=== PATIENT | male | born 1970 | race Caucasian/White ===

== ENCOUNTER 2016-12-23 18:45 | Inpatient (IN) | payer SELFPAY ==
[2016-12-23] MEDS ORDERED: NS 1000 ML 1,000 ML ONE (18:55)
[2016-12-23] MEDS ORDERED: THIAMINE HCL INJ ONE (18:56)
[2016-12-23] MEDS ORDERED: MAGNESIUM SULFATE 50% INJ ONE (18:56)
[2016-12-23] MEDS ORDERED: PHENOBARBITAL SODIUM INJ 65 MG VIAL ONE (18:57)
--- NOTE | 2016-12-23 18:57 | DR.GENAD ---
HPI - PCP Primary Care Physician: Dionicio - Complaint/Symptoms Chief Complaint Doctors Comments: Patient reports that he took two xanax tablets today and has been drinking. He had a history of alcoholism but quit, it is reported that when his dad two weeks he started back drinking. He is not suicidal. He was brought to the ED for evaluation for possible overdose. PMH - PMH Past Medical History: Depression, GERD Past Surgical History: Yes Surgical History: Ortho Surgery - Social History Do you use any recreational Drugs:: No ROS - Review of Systems Eyes: No Symptoms Reported ENTM: No Symptoms Reported Respiratoy: No Symptoms Reported Cardiovascular: No Symptoms Reported Gastrointestinal/Abdominal: No Symptoms Reported Genitourinary: No Symptoms Reported Neurological: No Symptoms Reported Musculoskeletal: No Symptoms Reported Integumentary: No Symptoms Reported Hematologic/Lymphatic: No Symptoms Reported Endocrine: No Symptoms Reported Psychiatric: No Symptoms Reported All Other Systems: Reviewed and Negative PE - Vital Signs Vitals: Pulse Rate 88 Respiratory Rate 20 Blood Pressure [Left Arm] 142/78 Blood Pressure [Right Arm] 130/71 Blood Pressure 122/65 O2 Sat by Pulse Oximetry 100 - General Limitations: No Limitations General Appearance: Alert, In No Apparent Distress, Obtunded, Other (pale) - Head Head Exam: Normal Inspection, Atraumatic - Eyes Eye exam: Normal Appearance, PERRL, EOMI - ENT ENT Exam: Normal Exam External Ear Exam: Normal External Inspection TM/Canal Exam: Bilateral Normal Nose Exam: Normal Nose Exam Mouth Exam: Normal Inspection Throat Exam: Normal Inspection - Neck Neck Exam: Normal Inspection, Full ROM - Chest Chest Inspection: Normal Inspection, Symmetric Chest Wall Rise - Respiratory Respiratory Exam: Normal Lung Sounds Bilat Respiratory Exam: Bilateral Clear to Auscultation - Cardiovascular Cardiovascular Exam: Regular Rate, Normal Rhythm - Abdominal Exam Abdominal Exam: Normal Inspection Abdominal Tenderness: negative: RUQ, RLQ, LUQ, LLQ, Epigastrium, Suprapubic, Diffuse, Mild, Moderate, Severe, Other - Extremities Extremities Exam: Normal Inspection - Back Back Exam: Normal Inspection - Neurologic Neurological Exam: Alert, Oriented X3, CN II-XII Intact, Other (intoxicated) - Psychiatric Psychiatric Exam: Normal Affect. negative: Homicidal Ideation, Suicidal Ideation - Skin Skin Exam: Warm, Dry, Intact Course - Consultation Called: 08:05 (Dr Greenberg recommended admission for further evaluation and treatment) ROR - Labs Reviewed Result Diagrams: 12/23/16 18:58 12/23/16 18:58 Laboratory: WBC 11.4 X10^3/uL (3.6-10.0) H 12/23/16 18:58 RBC 2.26 X10^6/uL (4.7-6.0) L 12/23/16 18:58 Hgb 3.3 g/dL (13.5-18.0) L* 12/23/16 18:58 Hct 12.5 % (42.0-54.0) L* 12/23/16 18:58 MCV 55.3 fL (80.0-100.0) L 12/23/16 18:58 MCH 14.6 pg (27.0-34.0) L 12/23/16 18:58 MCHC 26.5 g/dL (33.0-35.0) L 12/23/16 18:58 RDW 19.9 % (11.6-16.5) H 12/23/16 18:58 Plt Count 214 X10^3/uL (150.0-450.0) 12/23/16 18:58 Plt Count Comment Adequate (ADEQUATE) 12/23/16 18:58 MPV 8.5 fL (7.4-11.0) 12/23/16 18:58 Neut % 75.4 % (42.0-75.0) H 12/23/16 18:58 Lymph % 15.6 % (21.0-51.0) L 12/23/16 18:58 [place] % 5.6 % (0.0-13.0) 12/23/16 18:58 Eos % 2.2 % (0.9-2.9) 12/23/16 18:58 Baso % 1.2 % (0.2-1.0) H 12/23/16 18:58 Neut # 8.6 x10^3/uL (2.2-4.8) H 12/23/16 18:58 Lymph # 1.8 X10^3/uL (1.3-2.9) 12/23/16 18:58 [place] # 0.6 x10^3/uL (0.3-0.8) 12/23/16 18:58 Eos # 0.3 x10^3/uL (0.0-0.2) H 12/23/16 18:58 Baso # 0.1 X10^3/uL (0.0-0.1) 12/23/16 18:58 Absolute Nucleated RBC 1.1 /100WBC 12/23/16 18:58 Total Counted 100 12/23/16 18:58 Neutrophils % (Manual) 86 % (39-76) H 12/23/16 18:58 Lymphocytes % (Manual) 14 % (13-43) 12/23/16 18:58 Plt Morphology Comment Normal (NORMAL) 12/23/16 18:58 RBC Morphology Abnormal (NORMAL) 12/23/16 18:58 Hypochromasia 3+ A 12/23/16 18:58 Microcytosis 3+ A 12/23/16 18:58 Sodium 141 mmol/L (136-145) 12/23/16 18:58 Corrected Sodium 142 mmol/L (136-145) 12/23/16 18:58 Potassium 3.2 mmol/L (3.5-5.1) L 12/23/16 18:58 Chloride 108 mmol/L (98-107) H 12/23/16 18:58 Carbon Dioxide 17.1 mmol/L (21-32) L 12/23/16 18:58 BUN 15 mg/dL (7-18) 12/23/16 18:58 Creatinine 0.99 mg/dL (0.70-1.30) 12/23/16 18:58 Est GFR (MDRD) Af Amer > 60 (>60) 12/23/16 18:58 Est GFR (MDRD) Non-Af > 60 (>60) 12/23/16 18:58 Glucose 123 mg/dL (65-99) H 12/23/16 18:58 Calcium 7.5 mg/dL (8.5-10.1) L 12/23/16 18:58 Corrected Calcium 8.4 mg/dL (8.5-10.1) L 12/23/16 18:58 Total Bilirubin 0.30 mg/dL (0.2-1.0) 12/23/16 18:58 AST 11 Units/L (15-37) L 12/23/16 18:58 ALT 16 Units/L (12-78) 12/23/16 18:58 Alkaline Phosphatase 76 Units/L (46-116) 12/23/16 18:58 Ammonia 18 umol/L (11-32) 12/23/16 20:39 Total Protein 5.8 g/dL (6.4-8.2) L 12/23/16 18:58 Albumin 2.9 g/dL (3.4-5.0) L 12/23/16 18:58 Globulin 2.9 g/dL (2.5-4.5) 12/23/16 18:58 Albumin/Globulin Ratio 1.0 Ratio (1.1-2.1) L 12/23/16 18:58 Specimen Type Catherized urine 12/23/16 19:36 Urine Color Yellow (YELLOW) 12/23/16 19:36 Urine Appearance Clear (CLEAR) 12/23/16 19:36 Urine pH 6.0 (5.0 - 8.0) 12/23/16 19:36 Ur Specific [place] 1.020 (1.000-1.030) 12/23/16 19:36 Urine Protein 1+ (NEGATIVE) 12/23/16 19:36 Urine Glucose (UA) Negative (NEGATIVE) 12/23/16 19:36 Urine Ketones Negative (NEGATIVE) 12/23/16 19:36 Urine Occult Blood 3+ (NEGATIVE) 12/23/16 19:36 Urine Nitrite Negative (NEGATIVE) 12/23/16 19:36 Urine Bilirubin Negative (NEGATIVE) 12/23/16 19:36 Urine Urobilinogen Normal (NORMAL) 12/23/16 19:36 Ur Leukocyte Esterase 1+ (NEGATIVE) 12/23/16 19:36 Urine RBC 12-15 /HPF (NEGATIVE) 12/23/16 19:36 Urine WBC 2-3 /HPF (NEGATIVE) 12/23/16 19:36 Ur Squamous Epith Cells Negative /HPF (NEGATIVE) 12/23/16 19:36 Amorphous Sediment 1+ /HPF (NEGATIVE) 12/23/16 19:36 Urine Bacteria Trace /HPF (NEGATIVE) 12/23/16 19:36 Hyaline Casts Rare /LPF (NEGATIVE) 12/23/16 19:36 Urine Mucus Moderate /HPF (NEGATIVE) 12/23/16 19:36 Ur Culture Indicated? No/not indicated 12/23/16 19:36 Salicylates 3.9 mg/dL (2.8-20) 12/23/16 18:58 Urine Opiates Screen Negative (NEG=<300) 12/23/16 19:36 Urine Methadone Screen Negative (NEG=<300) 12/23/16 19:36 Acetaminophen 1.7 ug/mL (10-30) L 12/23/16 18:58 Ur Barbiturates Screen Negative (NEG=<200) 12/23/16 19:36 Ur Phencyclidine Scrn Negative (NEG=<25) 12/23/16 19:36 Ur Amphetamines Screen Negative (NEG=<1000) 12/23/16 19:36 U Benzodiazepines Scrn Positive (NEG=<200) 12/23/16 19:36 Urine Cocaine Screen Negative (NEG=<300) 12/23/16 19:36 U Marijuana (THC) Screen Positive (NEG=<50) A 12/23/16 19:36 Ethyl Alcohol mg/dL 59 mg/dL (0-19.9) H 12/23/16 18:58 Blood Type O POSITIVE 12/23/16 18:58 Antibody Screen Negative 12/23/16 18:58 Crossmatch See Detail 12/23/16 18:58 - XRAY XRAY Interpreted by: Radiologist (Chest: Cardiomegaly w/o CHF, lungs are clear) - Diagnosis Discharge Problem: Hypokalemia, Metabolic acidosis Anemia Qualifiers: Anemia type: unspecified type Qualified Code(s): D64.9 - Anemia, unspecified - Discharge Plan Condition: Stable - Follow ups/Referrals Follow ups/Referrals: MONICA GREENBERG [Primary Care Provider] - 3 days - Instructions
[2016-12-23] MEDS ORDERED: MVI INJ (ADULT) IV ONE (19:04)
[2016-12-23 19:07] LABS: BASOPHILS # (AUTO) 0.1 X10^3/uL (0.0-0.1); EOSINOPHILS # (AUTO) 0.3 x10^3/uL (0.0-0.2); MONOCYTES # (AUTO) 0.6 x10^3/uL (0.3-0.8); RED CELL DISTRIBUTION WIDTH 19.9 % (11.6-16.5)
[2016-12-23] MEDS: NS 1000 ML 1,000 ML with THIAMINE HCL INJ 100 MG, MAGNESIUM SULFATE 50% INJ 1 GM, MVI I... IV SCH ×5 (19:16)
[2016-12-23 19:18] LABS: ALANINE AMINOTRANSFERASE 16 Units/L (12-78); ALBUMIN 2.9 g/dL (3.4-5.0); ALKALINE PHOSPHATASE 76 Units/L (46-116); ASPARTATE AMINO TRANSFERASE 11 Units/L (15-37); BLOOD ALCOHOL 59 mg/dL (0-19.9); BLOOD UREA NITROGEN 15 mg/dL (7-18); CALCIUM 7.5 mg/dL (8.5-10.1); CARBON DIOXIDE 17.1 mmol/L (21-32); CHLORIDE 108 mmol/L (98-107); COR CA(FOR HYPOALB) 8.4 mg/dL (8.5-10.1); COR NA(FOR HYPERGLY) 142 mmol/L (136-145); CREATININE 0.99 mg/dL (0.70-1.30); GLUCOSE 123 mg/dL (65-99); SODIUM 141 mmol/L (136-145); TOTAL PROTEIN 5.8 g/dL (6.4-8.2); eGFR BLACK RACES > 60 (>60); eGFR NON BLACK RACES > 60 (>60)
[2016-12-23 19:20] LABS: ACETAMINOPHEN 1.7 ug/mL (10-30); SALICYLATE 3.9 mg/dL (2.8-20)
[2016-12-23 19:25] LABS: BASOPHILS % (AUTO) 1.2 % (0.2-1.0); EOSINOPHILS % (AUTO) 2.2 % (0.9-2.9); LYMPHOCYTES # (AUTO) 1.8 X10^3/uL (1.3-2.9); LYMPHOCYTES % (AUTO) 15.6 % (21.0-51.0); MEAN CORPUSCULAR HEMOGLOBIN 14.6 pg (27.0-34.0); MEAN CORPUSCULAR HGB CONC 26.5 g/dL (33.0-35.0); MEAN CORPUSCULAR VOLUME 55.3 fL (80.0-100.0); MEAN PLATELET VOLUME 8.5 fL (7.4-11.0); MONOCYTES % (AUTO) 5.6 % (0.0-13.0); NEUTROPHILS # (AUTO) 8.6 x10^3/uL (2.2-4.8); NEUTROPHILS % (AUTO) 75.4 % (42.0-75.0); PLATELET COUNT 214 X10^3/uL (150.0-450.0); RED BLOOD COUNT 2.26 X10^6/uL (4.7-6.0); WHITE BLOOD COUNT 11.4 X10^3/uL (3.6-10.0)
[2016-12-23 19:27] LABS: HEMOGLOBIN 3.3 g/dL (13.5-18.0)
[2016-12-23 19:28] LABS: HEMATOCRIT 12.5 % (42.0-54.0)
[2016-12-23 19:33] LABS: PLATELET MORPHOLOGY COMMENT NORMAL (NORMAL)
[2016-12-23 19:34] LABS: HYPOCHROMASIA 3+; MICROCYTOSIS 3+
[2016-12-23 20:02] LABS: BILIRUBIN,URINE NEGATIVE (NEGATIVE); BLOOD/HEMOGLOBIN,URINE 3+ (NEGATIVE); GLUCOSE, URINE NEGATIVE (NEGATIVE); KETONES,URINE NEGATIVE (NEGATIVE); LEUKOCYTE ESTERASE ,URINE 1+ (NEGATIVE); NITRITES,URINE NEGATIVE (NEGATIVE); PROTEIN,URINE 1+ (NEGATIVE); UROBILINOGEN,URINE NORMAL (NORMAL)
[2016-12-23 20:10] LABS: AMORPHOUS SEDIMENT,UR 1+ /HPF (NEGATIVE); APPEARANCE,URINE CLEAR (CLEAR); BACTERIA,URINE TRACE /HPF (NEGATIVE); COLOR,URINE YELLOW (YELLOW); HYALINE CASTS, URINE RARE /LPF (NEGATIVE); MUCUS,URINE MODERATE /HPF (NEGATIVE); SQUAMOUS EPITHELIAL CELL,UR NEGATIVE /HPF (NEGATIVE)
[2016-12-23] MEDS ORDERED: NS IV ONE ×2 (20:12)
[2016-12-23] MEDS ORDERED: POTASSIUM CHLORIDE IV ONE ×2 (20:12)
--- NOTE | 2016-12-23 20:14 | RAD ---
HISTORY: Intoxicated. Study: Single-view chest. Comparison: August 05, 2011. Findings: The trachea is midline. The cardiac silhouette is enlarged without evidence of congestive heart fail ure. The lungs are clear without focal consolidation, pleural effusion or pneumothorax. The bony tho rax is grossly unremarkable. IMPRESSION: 1. Cardiomegaly without congestive heart failure. 2. The lungs are clear. Reported By:
[2016-12-23] MEDS ORDERED: NS 250 ML IV 250 ML IV ONE ×2 (20:36→23:01)
[2016-12-23 23:03] VITALS: BMI 30.4
[2016-12-24] MEDS ORDERED: PROTONIX INJ 40 MG VIAL ONE (01:12)
[2016-12-24] MEDS ORDERED: NS 1000 ML 1,000 ML ONE (01:12)
[2016-12-24] MEDS ORDERED: PHENOBARBITAL SODIUM INJ 65 MG VIAL ONE (01:13)
[2016-12-24] MEDS ORDERED: MVI INJ (ADULT) IV ONE (01:13)
[2016-12-24] MEDS ORDERED: MAGNESIUM SULFATE 50% INJ ONE (01:13)
[2016-12-24] MEDS ORDERED: THIAMINE HCL INJ ONE (01:13)
[2016-12-24 02:54] LABS: FREE T4 (FREE THYROXINE) 0.85 ng/dL (0.76-1.46); TSH (3RD GENERATION) 0.922 uIU/mL (0.358-3.74)
[2016-12-24] MEDS: PROTONIX INJ 40 MG VIAL IVP SCH ×3 (03:28→20:51)
[2016-12-24] MEDS: NS 1000 ML 1,000 ML with THIAMINE HCL INJ 100 MG, MAGNESIUM SULFATE 50% INJ 1 GM, MVI I... IV SCH ×10 (03:28→20:37)
[2016-12-24 05:09] LABS: BASOPHILS # (AUTO) 0.2 X10^3/uL (0.0-0.1); BASOPHILS % (AUTO) 1.3 % (0.2-1.0); EOSINOPHILS # (AUTO) 0.2 x10^3/uL (0.0-0.2); EOSINOPHILS % (AUTO) 1.8 % (0.9-2.9); LYMPHOCYTES # (AUTO) 2.6 X10^3/uL (1.3-2.9); LYMPHOCYTES % (AUTO) 21.8 % (21.0-51.0); MEAN CORPUSCULAR HEMOGLOBIN 17.8 pg (27.0-34.0); MEAN CORPUSCULAR HGB CONC 28.9 g/dL (33.0-35.0); MEAN CORPUSCULAR VOLUME 61.6 fL (80.0-100.0); MEAN PLATELET VOLUME 8.8 fL (7.4-11.0); MONOCYTES # (AUTO) 0.5 x10^3/uL (0.3-0.8); MONOCYTES % (AUTO) 4.4 % (0.0-13.0); NEUTROPHILS # (AUTO) 8.4 x10^3/uL (2.2-4.8); NEUTROPHILS % (AUTO) 70.7 % (42.0-75.0); PLATELET COUNT 169 X10^3/uL (150.0-450.0); RED BLOOD COUNT 2.94 X10^6/uL (4.7-6.0); RED CELL DISTRIBUTION WIDTH 30.3 % (11.6-16.5); WHITE BLOOD COUNT 11.8 X10^3/uL (3.6-10.0)
[2016-12-24 05:10] LABS: HEMATOCRIT 18.1 % (42.0-54.0); HEMOGLOBIN 5.2 g/dL (13.5-18.0)
[2016-12-24 05:15] LABS: ALANINE AMINOTRANSFERASE 18 Units/L (12-78); ALBUMIN 3.1 g/dL (3.4-5.0); ALKALINE PHOSPHATASE 92 Units/L (46-116); ASPARTATE AMINO TRANSFERASE 16 Units/L (15-37); BLOOD UREA NITROGEN 16 mg/dL (7-18); CALCIUM 7.4 mg/dL (8.5-10.1); CARBON DIOXIDE 20.7 mmol/L (21-32); CHLORIDE 109 mmol/L (98-107); COR CA(FOR HYPOALB) 8.1 mg/dL (8.5-10.1); COR NA(FOR HYPERGLY) 140 mmol/L (136-145); CREATININE 0.76 mg/dL (0.70-1.30); GLUCOSE 112 mg/dL (65-99); SODIUM 140 mmol/L (136-145); eGFR BLACK RACES > 60 (>60); eGFR NON BLACK RACES > 60 (>60)
[2016-12-24] MEDS ORDERED: NS 250 ML IV 250 ML IV ONE ×2 (05:17→22:19)
[2016-12-24 05:59] LABS: ANISOCYTOSIS 3+; HYPOCHROMASIA 3+; MICROCYTOSIS 3+; PLATELET MORPHOLOGY COMMENT NORMAL (NORMAL)
[2016-12-24] MEDS ORDERED: TYLENOL 325 MG TAB PO PRN (09:31)
[2016-12-24] MEDS ORDERED: BENADRYL INJ 50 MG VIAL IVP ONE (14:43)
[2016-12-24] MEDS ORDERED: NS 100 ML IV 100 ML IV ONE (16:26)
[2016-12-24] MEDS: ULTRAM PO PRN ×2 (17:00→23:49)
--- NOTE | 2016-12-24 18:12 | CT ---
CT OF THE ABDOMEN AND PELVIS WITHOUT AND WITH CONTRAST HISTORY: Abdominal pain. Comparison: None Technique: Multiple axial images of the abdomen and pelvis were obtained from the lung bases to the pubic symphy sis before and following the administration of IV contrast. Dose reduction techniques including Aut omated Exposure Control (AEC) and adjustment of mA and kV were utlized. Findings: The heart is normal in size. There is no pericardial effusion. Trace bilateral pleural effusions with adjacent atelectasis. Large hiatal hernia with a large portion of the stomach residing within the c hest. Abdomen without: No gallstones, renal stones or proximal ureteral stones. Abdomen with: Liver and spleen are normal in size, enhancement characteristics and contour. No focal lesions. The portal vein is patent. No ductal dilitation. gallbladder wall is mildly edematous and th ere is edema within the region of the macarena hepatis and the perihepatic region. The pancreas is unrem arkable. Adrenal glands are normal. Kidneys enhance symmetrically without hydronephrosis. No bowel obstruction or inflammation. Normal appendix. Severe diverticulosis without definite evidenc e of focal inflammation No abnormal appearing mesenteric or retroperitoneal lymph nodes. No free flui d or fluid collections. Pelvis without: No distal ureteral stones or bladder stones. Pelvis with: Bladder is somewhat thick-walled. Prostate not enlarged. Fluid can be seen within the r ight inguinal canal. No aggressive osseous lesions. IMPRESSION: 1. Edematous appearing gallbladder which may represent cholecystitis in the correct clinical setting . Additional signs of inflammation and free fluid can be seen in the region of the macarena hepatis, per ihepatic space, low pelvis and right inguinal canal. Other than previously mentioned gallbladder, no definite source of inflammation can be identified. Reported By:
[2016-12-24] MEDS: ZOFRAN INJ 4 MG VIAL IVP PRN (18:43)
[2016-12-24 22:13] LABS: HEMATOCRIT 22.5 % (42.0-54.0)
[2016-12-24 22:14] LABS: HEMOGLOBIN 6.7 g/dL (13.5-18.0)
[2016-12-25] MEDS ORDERED: NS 250 ML IV 250 ML IV ONE (01:04)
[2016-12-25] MEDS: ZOFRAN INJ 4 MG VIAL IVP PRN (03:50)
[2016-12-25] MEDS: NORCO 5/325 MG TAB PO PRN (05:27)
[2016-12-25] MEDS: PHENERGAN INJ 25 MG IV PRN ×2 (05:27→21:54)
[2016-12-25] MEDS ORDERED: THIAMINE HCL INJ ONE (05:37)
[2016-12-25] MEDS ORDERED: PHENOBARBITAL SODIUM INJ 65 MG VIAL ONE (05:37)
[2016-12-25] MEDS ORDERED: NS 1000 ML 1,000 ML ONE (05:37)
[2016-12-25] MEDS ORDERED: MAGNESIUM SULFATE 50% INJ ONE (05:37)
[2016-12-25] MEDS ORDERED: MVI INJ (ADULT) IV ONE (05:38)
[2016-12-25 05:40] LABS: BASOPHILS # (AUTO) 0.3 X10^3/uL (0.0-0.1); BASOPHILS % (AUTO) 1.9 % (0.2-1.0); EOSINOPHILS # (AUTO) 0.1 x10^3/uL (0.0-0.2); HEMOGLOBIN 8.9 g/dL (13.5-18.0); LYMPHOCYTES # (AUTO) 1.4 X10^3/uL (1.3-2.9); LYMPHOCYTES % (AUTO) 9.8 % (21.0-51.0); MEAN CORPUSCULAR HEMOGLOBIN 20.7 pg (27.0-34.0); MEAN CORPUSCULAR HGB CONC 30.6 g/dL (33.0-35.0); MEAN CORPUSCULAR VOLUME 67.8 fL (80.0-100.0); MEAN PLATELET VOLUME 8.8 fL (7.4-11.0); MONOCYTES # (AUTO) 0.7 x10^3/uL (0.3-0.8); MONOCYTES % (AUTO) 4.8 % (0.0-13.0); NEUTROPHILS # (AUTO) 11.8 x10^3/uL (2.2-4.8); NEUTROPHILS % (AUTO) 82.5 % (42.0-75.0); PLATELET COUNT 117 X10^3/uL (150.0-450.0); RED BLOOD COUNT 4.28 X10^6/uL (4.7-6.0); RED CELL DISTRIBUTION WIDTH 32.2 % (11.6-16.5); WHITE BLOOD COUNT 14.3 X10^3/uL (3.6-10.0)
[2016-12-25] MEDS: NS 1000 ML 1,000 ML with THIAMINE HCL INJ 100 MG, MAGNESIUM SULFATE 50% INJ 1 GM, MVI I... IV SCH ×10 (05:45→19:14)
[2016-12-25 06:03] LABS: ALANINE AMINOTRANSFERASE 20 Units/L (12-78); ALKALINE PHOSPHATASE 98 Units/L (46-116); ASPARTATE AMINO TRANSFERASE 24 Units/L (15-37); BLOOD UREA NITROGEN 4 mg/dL (7-18); CALCIUM 7.6 mg/dL (8.5-10.1); CARBON DIOXIDE 22.4 mmol/L (21-32); CHLORIDE 108 mmol/L (98-107); COR CA(FOR HYPOALB) 8.4 mg/dL (8.5-10.1); CREATININE 0.55 mg/dL (0.70-1.30); GLUCOSE 110 mg/dL (65-99); SODIUM 140 mmol/L (136-145); eGFR BLACK RACES > 60 (>60); eGFR NON BLACK RACES > 60 (>60)
[2016-12-25 06:31] LABS: ANISOCYTOSIS 3+; HYPOCHROMASIA 2+; MICROCYTOSIS 1+; PLATELET MORPHOLOGY COMMENT NORMAL (NORMAL); POIKILOCYTOSIS 1+
[2016-12-25] MEDS: PROTONIX INJ 40 MG VIAL IVP SCH ×2 (08:45→20:53)
[2016-12-25] MEDS: ZOSYN VIAL 3.375 GM 3.375 GM in NS 100 ML IV + SPIKE MINIBAG* 100 ML IV SCH ×3 (08:45→20:59)
[2016-12-25] MEDS ORDERED: DILAUDID INJ IVP PRN (08:54)
[2016-12-25] MEDS: DILAUDID INJ IVP PRN ×4 (09:35→21:54)
--- NOTE | 2016-12-25 12:38 | US ---
Limited abdominal ultrasound Indication: Right upper quadrant pain Comparison: None Technique: Sonographic images of the abdomen were obtained per protocol. Findings: There is no cholelithiasis or gallbladder sludge. There is mild pericholecystic edema, alth ough the wall is not thickened. No biliary dilation is observed; the common duct measures 3 mm in [place] meter. The visualized liver and right kidney were within normal limits. The pancreas was not visualiz ed. Impression: Nonspecific pericholecystic edema without other evidence to suggest cholecystitis. No gallbladder sto jeromy or sludge. Reported By:
[2016-12-25] MEDS ORDERED: PHARMACY CONSULT - DOSE _____ XX SCH (14:00)
[2016-12-25] MEDS ORDERED: DEXFERRUM or INFED 25 MG in NS 100 ML IV 100 ML IV ONE (15:00)
[2016-12-25] MEDS ORDERED: DEXFERRUM or INFED 1,000 MG in NS 500 ML IV 500 ML IV ONE (16:00)
[2016-12-25] MEDS ORDERED: NS 500 ML IV 500 ML IV ONE (20:46)
[2016-12-26] MEDS: DILAUDID INJ IVP PRN ×5 (04:19→20:54)
[2016-12-26] MEDS ORDERED: NS 1000 ML 1,000 ML ONE (04:32)
[2016-12-26] MEDS ORDERED: PHENOBARBITAL SODIUM INJ 65 MG VIAL ONE (04:33)
[2016-12-26] MEDS ORDERED: THIAMINE HCL INJ ONE (04:33)
[2016-12-26] MEDS ORDERED: MAGNESIUM SULFATE 50% INJ ONE (04:33)
[2016-12-26] MEDS ORDERED: MVI INJ (ADULT) IV ONE (04:34)
[2016-12-26 04:44] LABS: ALANINE AMINOTRANSFERASE 18 Units/L (12-78); ALBUMIN 2.8 g/dL (3.4-5.0); ALKALINE PHOSPHATASE 90 Units/L (46-116); BLOOD UREA NITROGEN 5 mg/dL (7-18); CALCIUM 7.6 mg/dL (8.5-10.1); CARBON DIOXIDE 25.5 mmol/L (21-32); CHLORIDE 106 mmol/L (98-107); COR CA(FOR HYPOALB) 8.6 mg/dL (8.5-10.1); CREATININE 0.64 mg/dL (0.70-1.30); GLUCOSE 100 mg/dL (65-99); SODIUM 141 mmol/L (136-145); TOTAL PROTEIN 5.8 g/dL (6.4-8.2); eGFR BLACK RACES > 60 (>60); eGFR NON BLACK RACES > 60 (>60)
[2016-12-26 04:47] LABS: BASOPHILS # (AUTO) 0.1 X10^3/uL (0.0-0.1); EOSINOPHILS # (AUTO) 0.3 x10^3/uL (0.0-0.2); EOSINOPHILS % (AUTO) 2.9 % (0.9-2.9); HEMATOCRIT 30.1 % (42.0-54.0); HEMOGLOBIN 9.4 g/dL (13.5-18.0); LYMPHOCYTES # (AUTO) 1.1 X10^3/uL (1.3-2.9); LYMPHOCYTES % (AUTO) 12.3 % (21.0-51.0); MEAN CORPUSCULAR HEMOGLOBIN 21.5 pg (27.0-34.0); MEAN CORPUSCULAR HGB CONC 31.3 g/dL (33.0-35.0); MEAN CORPUSCULAR VOLUME 68.8 fL (80.0-100.0); MEAN PLATELET VOLUME 8.7 fL (7.4-11.0); MONOCYTES # (AUTO) 0.6 x10^3/uL (0.3-0.8); MONOCYTES % (AUTO) 6.7 % (0.0-13.0); NEUTROPHILS # (AUTO) 7.1 x10^3/uL (2.2-4.8); NEUTROPHILS % (AUTO) 77.1 % (42.0-75.0); PLATELET COUNT 144 X10^3/uL (150.0-450.0); RED BLOOD COUNT 4.37 X10^6/uL (4.7-6.0); RED CELL DISTRIBUTION WIDTH 32.3 % (11.6-16.5); WHITE BLOOD COUNT 9.3 X10^3/uL (3.6-10.0)
[2016-12-26 05:42] LABS: ASPARTATE AMINO TRANSFERASE 16 Units/L (15-37)
[2016-12-26] MEDS: ZOSYN VIAL 3.375 GM 3.375 GM in NS 100 ML IV + SPIKE MINIBAG* 100 ML IV SCH ×3 (05:48→21:12)
[2016-12-26] MEDS: NS 1000 ML 1,000 ML with THIAMINE HCL INJ 100 MG, MAGNESIUM SULFATE 50% INJ 1 GM, MVI I... IV SCH ×10 (05:48→20:53)
[2016-12-26] MEDS ORDERED: POTASSIUM CHLORIDE LIQ 20 MEQ UDC PO PRN (05:50)
[2016-12-26] MEDS ORDERED: K-LYTE EFFERVESCENT PO PRN (05:50)
[2016-12-26] MEDS ORDERED: K-RIDER 10 MEQ/NS 100 ML 10 MEQ/100 ML BAG IV PRN (05:50)
[2016-12-26 06:45] LABS: ANISOCYTOSIS 3+; HYPOCHROMASIA 1+; MICROCYTOSIS 1+; PLATELET MORPHOLOGY COMMENT NORMAL (NORMAL)
[2016-12-26] MEDS: PROTONIX INJ 40 MG VIAL IVP SCH ×2 (10:45→20:54)
--- NOTE | 2016-12-26 11:09 | NM ---
HISTORY: RUQ pain, nausea. Technique: Multiple scintigraphic images of the abdomen were obtained the intravenous administration of 6.42 mCi of technetium labeled Choletec. Following distention of the gallbladder with radiotracer a bottle of Ensure was given. An estimated gallbladder ejection fraction was calculated based on this physiologic response. Findings: Homogeneous uptake of radiotracer is seen throughout the liver. The intrabiliary ductal system is ob served normally. The common hepatic and common bile duct grossly appear unremarkable with normal juan iary-bowel transit. The gallbladder is observed to fill normally without evidence for acute cholecys titis. After the administration of ensure, however, an abnormally low gallbladder ejection fraction o f 32% (normal > 35%) is observed. Although many etiologies (certain medications, cholangitis, pancrea titis, sepsis, etc.) can account for a low gallbladder ejection fraction, in the outpatient setting, the most common etiology is chronic cholecystitis. IMPRESSION: 1. Hepatobiliary imaging study demonstrates no evidence for hepatic dysfunction, acute cholecystitis , or biliary leak/biloma formation. 2. Low gallbladder ejection fraction of 32%, most likely reflecting chronic cholecystitis, as discus sed above. Reported By:
--- NOTE | 2016-12-26 23:16 | DR.H&P ---
H&P - History & Physical for Day of: H&P Date: 12/23/16 - Chief Complaint Chief Complaint: Generalized weakness - Allergies Allergies/Adverse Reactions: Allergies Allergy/AdvReac Type Severity Reaction Status Date / Time morphine Allergy Verified 12/23/16 20:23 - History of Present Illness History of Present Illness: 46 y/o WM presented to the ER c/o generalized weakness. The patient reportedly took "two xanax" earlier today and has been drinking alcohol. The gives a h/o alcohol abuse in the past and further states that he has been drinking again after the of his father two weeks ago. The pt also c/o mild abd pain. The pt was noted in the ER to have a mild metabolic acidosis and a hgb of 3.2. The patient denies hematemesis, hematochezia or melanotic stools. - Past Medical History Past Medical History: Depression, GERD - Past Surgical History Surgical History: Appendectomy, Ortho Surgery - Family History Family Medical History: [place], Coronary Artery Disease - Social History Does patient currently use any type of tobacco product: Yes Have you used tobacco products in the last 12 months: Yes Type of Tobacco Use: Cigarettes Does any household member use tobacco: No Alcohol Use: Occasionally, Other Drug Use: Prescription Drugs, Marijuana - Medications Home Medications: No Known Home Medications 1 XX 12/26/16 [History] - Review of Systems Constitutional: See HPI Eyes: No Symptoms Reported ENT: No Symptoms Reported Respiratory: No Symptoms Reported Cardiovascular: No Symptoms Reported Gastrointestinal: No Symptoms Reported Genitourinary: No Symptoms Reported Musculoskeletal: No Symptoms Reported Skin: No Symptoms Reported Neurological: See HPI - Physical Exam Vital Signs: Temperature 98.5 F Pulse Rate [Apical] 87 Pulse Rate [Left Brachial] 60 Pulse Rate 88 Respiratory Rate 23 Blood Pressure [Left Calf] 159/78 Blood Pressure [Left Arm] 156/76 Blood Pressure [Right Arm] 162/86 Blood Pressure 122/65 O2 Sat by Pulse Oximetry 92 Oriented: Normal Eyes: Normal Ear: Normal Nose: Normal Throat: Normal Respiratory: Clear Throughout Cardiovascular: Normal : Normal Auscultation: Bowel Sounds: Normal Palpation: Normal Tenderness: Epigastric (pain) Skin: Normal Musculoskeletal: Normal Psychiatric: Normal Mood Description: Calm Affect: Normal Speech Pattern: Clear - Assessment/Plan (1) Iron deficiency anemia due to chronic blood loss Status: Acute Plan: 1. Admit to ICU. 2. Type and cross and transfuse 4 units of PRBC's. 3. NS at 100cc/hr. 4. CMP and CBC. 5. Serial H/H measurements. 6. O2 at 2L/min per NC. 7. Protonix 40mg IV q 12 hours. 8. CMP and CBC in am. 9. For further orders see chart. (2) Abdominal pain Status: Acute Plan: see orders (3) Metabolic acidosis Status: Acute Plan: see orders
[2016-12-27] MEDS: DILAUDID INJ IVP PRN ×7 (01:03→21:45)
[2016-12-27 05:18] LABS: ALANINE AMINOTRANSFERASE 15 Units/L (12-78); ALBUMIN 2.6 g/dL (3.4-5.0); ALKALINE PHOSPHATASE 76 Units/L (46-116); ASPARTATE AMINO TRANSFERASE 12 Units/L (15-37); BASOPHILS % (AUTO) 0.6 % (0.2-1.0); BLOOD UREA NITROGEN 5 mg/dL (7-18); CALCIUM 8.3 mg/dL (8.5-10.1); CARBON DIOXIDE 27.5 mmol/L (21-32); CHLORIDE 108 mmol/L (98-107); COR CA(FOR HYPOALB) 9.4 mg/dL (8.5-10.1); CREATININE 0.69 mg/dL (0.70-1.30); EOSINOPHILS # (AUTO) 0.3 x10^3/uL (0.0-0.2); EOSINOPHILS % (AUTO) 3.9 % (0.9-2.9); GLUCOSE 92 mg/dL (65-99); HEMATOCRIT 30.5 % (42.0-54.0); HEMOGLOBIN 9.5 g/dL (13.5-18.0); LYMPHOCYTES # (AUTO) 1.3 X10^3/uL (1.3-2.9); MEAN CORPUSCULAR HEMOGLOBIN 21.5 pg (27.0-34.0); MEAN CORPUSCULAR HGB CONC 31.1 g/dL (33.0-35.0); MEAN CORPUSCULAR VOLUME 69.3 fL (80.0-100.0); MONOCYTES # (AUTO) 0.6 x10^3/uL (0.3-0.8); MONOCYTES % (AUTO) 8.7 % (0.0-13.0); NEUTROPHILS # (AUTO) 4.7 x10^3/uL (2.2-4.8); NEUTROPHILS % (AUTO) 67.8 % (42.0-75.0); PLATELET COUNT 145 X10^3/uL (150.0-450.0); RED BLOOD COUNT 4.41 X10^6/uL (4.7-6.0); RED CELL DISTRIBUTION WIDTH 33.2 % (11.6-16.5); SODIUM 142 mmol/L (136-145); TOTAL PROTEIN 5.7 g/dL (6.4-8.2); eGFR BLACK RACES > 60 (>60); eGFR NON BLACK RACES > 60 (>60)
[2016-12-27] MEDS: ZOSYN VIAL 3.375 GM 3.375 GM in NS 100 ML IV + SPIKE MINIBAG* 100 ML IV SCH ×3 (05:24→21:44)
[2016-12-27 05:48] LABS: ANISOCYTOSIS 3+; HYPOCHROMASIA 2+; MICROCYTOSIS 1+; PLATELET MORPHOLOGY COMMENT NORMAL (NORMAL)
[2016-12-27] MEDS ORDERED: XYLOCAINE 1 % (PLAIN) ONE (06:47)
[2016-12-27] MEDS ORDERED: NS 1000 ML 1,000 ML ONE (06:47)
[2016-12-27] MEDS: MARCAINE 0.25% INJ ONE ×2 (07:18→08:50)
[2016-12-27] MEDS: XYLOCAINE 1% and EPINEPHRINE 1:100,000 ONE ×2 (07:18→08:50)
[2016-12-27] MEDS ORDERED: FENTANYL INJ 250 mcg ONE (08:30)
[2016-12-27] MEDS ORDERED: NS IRRIGATION 3000 ML 3,000 ML IR ONE (09:34)
[2016-12-27] MEDS ORDERED: DILAUDID INJ ONE (09:48)
[2016-12-27] MEDS ORDERED: REGLAN INJ 10 MG VIAL IVP PRN (10:21)
[2016-12-27] MEDS ORDERED: ZOFRAN INJ 4 MG VIAL IVP PRN (10:21)
[2016-12-27] MEDS ORDERED: BENADRYL INJ 50 MG VIAL IVP PRN (10:21)
[2016-12-27] MEDS ORDERED: PHENERGAN INJ 25 MG IVP PRN (10:21)
--- NOTE | 2016-12-27 10:25 | OR.GENERIC ---
Post-Op Note Generic - Post-Op Note Operative Report: Date of Operation: December 27, 2016 Pre-Operative Diagnosis: Biliary dyskinesia. Post-Operative Diagnosis: 1. Chronic cholecystitis. 2. Biliary dyskinesia. Procedure: Laparoscopic cholecystectomy. Surgeon: Sherwin Castro MD. Clamshell Operator: Michelle Billy CRNA. Specimen: Gallbladder. Estimated blood loss: Minimal. Complications: None. Summary: The patient is a 46 year old male who presented with biliary dyskinesia. The patient was offered cholecystectomy. The risk and benefits of the procedure including difficulty with anesthesia, bleeding, infection, conversion to open procedure, bile leak, hernia formation, DVT, as well as PE were discussed with the patient. The patient understood these risks and requested the procedure. On December 27, 2016, the patient was brought to the operative theatre. A time out was performed verifying the patient and procedure. The patient received Ancef for pre-operative antibiosis. After satisfactory induction of general endotracheal anesthesia, the abdomen was prepped with Chloraprep and draped in the usual sterile fashion. The skin and subcutaneous tissue inferior to the umbilicus was anesthetized using local anesthetic. The skin was incised sharply. A 12 mm trocar was placed though the incision and into the peritoneal cavity using the Optiview technique. Carbon dioxide was infiltrated through this trocar to obtain a pneumoperitoneum of 15 mm Hg. A camera was placed through this trocar and swept in all directions. No injury was seen from entering the peritoneal cavity. A site was selected in the subxiphoid location for our 2nd trocar. The skin and fascia was anesthetized using local anesthetic. The skin was incised sharply. A 5 mm trocar was placed into the peritoneal cavity under direct visualization. In a similar manner, two additional 5 mm trocars were placed. The first was placed in the mid- clavicular line approximately 2 fingerbreadths inferior to the left costal margin and a second in the anterior axillary line approximately 2 fingerbreadths inferior to the left costal margin. The patient was placed in reverse Trendelenburg and rotated to the patients left. The gallbladder was grasped at the fundus and elevated cephalad and slightly lateral. The peritoneum on the medial and lateral aspects of the infundibulum of the gallbladder was scored using hook electrocautery. Using blunt dissection, the cystic artery and duct were isolated. The critical view of safety was obtained. Both of these structures were divided between endoclips. The gallbladder was dissected free using hook electrocautery. The gallbladder was placed in an endobag and removed through the umbilical trocar site without difficulty. The trocar and camera were placed back inside the abdomen. Our clips were noted in good position. Bleeding of the gallbladder fossa was controlled using electrocautery. At this point, the 5 mm trocars were removed under direct visualization. No bleeding was seen. The umbilical trocar was then removed and pneumoperitoneum released. The fascia at the umbilicus was closed using a 0-Vicryl placed in a [id number] configuration x 2. The skin edges at all incisions were re-approximated using inverted, interrupted 4- 0 Monocryl sutures. Benzoin and Steri-strips were placed. Sterile dressings were placed. The patient was awakened and taken to the recovery room in stable condition. There were no complications. All counts were correct.
--- NOTE | 2016-12-27 10:30 | DR.CONSULT ---
Consult - Consultation for Day of: Date: 12/25/16 - Chief Complaint Chief Complaint: RUQ pain - Allergies Allergies/Adverse Reactions: Allergies Allergy/AdvReac Type Severity Reaction Status Date / Time morphine Allergy Verified 12/23/16 20:23 - History of Present Illness History of Present Illness: The patient is a 46 yo M admitted to the [facility] with symptomatic anemia. The patient reports melena but denies hematochezia or hematemesis. (+) h/o anemia with need for transfusion several years ago. No diagnosis given at that time per patient. The patient c/o RUQ and epigastric pain. (-) h/o PUD. Admits to RUQ pain with PO intake. No obvious association with fatty food intake. A CT of the abdomen and pelvis demonstrated inflammatory changes of the gallbladder. An ultrasound failed to demonstrate cholelithiasis or gallbladder wall thickening. A HIDA scan is ordered at present. - Past Medical History Past Medical History: Depression, GERD - Past Surgical History Surgical History: Appendectomy, Ortho Surgery - Family History Family Medical History: [place], Coronary Artery Disease - Social History Does patient currently use any type of tobacco product: Yes Have you used tobacco products in the last 12 months: Yes Type of Tobacco Use: Cigarettes Does any household member use tobacco: No Alcohol Use: Occasionally, Other Drug Use: Prescription Drugs, Marijuana - Medications Home Medications: No Known Home Medications 1 XX 12/26/16 [History] - Review of Systems Constitutional: Weakness Eyes: No Symptoms Reported ENT: No Symptoms Reported Respiratory: No Symptoms Reported Cardiovascular: No Symptoms Reported Gastrointestinal: Abdominal Pain, Melena Genitourinary: No Symptoms Reported Musculoskeletal: No Symptoms Reported Skin: No Symptoms Reported - Physical Exam Vital Signs: Temperature 98.0 F Pulse Rate [Apical] 68 Pulse Rate [Left Brachial] 60 Pulse Rate 79 Respiratory Rate 19 Blood Pressure [Left Calf] 159/78 Blood Pressure [Left Arm] 149/75 Blood Pressure [Right Arm] 162/86 Blood Pressure 168/88 O2 Sat by Pulse Oximetry 95 Oriented: Normal Eyes: Normal Ear: Normal Respiratory: Clear Throughout Cardiovascular: Normal Auscultation: Bowel Sounds: Normal Palpation: Normal Tenderness: RUQ ((-) Lora's), Epigastric Skin: Normal Musculoskeletal: Normal Psychiatric: Normal Mood Description: Calm Speech Pattern: Clear, Appropriate - Plan Plan: 46 yo M with inflammatory changes of gallbladder on CT and pericholecystic edema noted on ultrasound. (+) h/o RUQ pain that is intermittent in nature. On exam, mildly TTP RUQ. (-) Lora's sign. Likely represents mild acute on chronic cholecystitis. Continue IV abx and await HIDA results. Will likely require lap [place]. Risk / benefits d/w patient. All questions answered.
[2016-12-27] MEDS: PROTONIX INJ 40 MG VIAL IVP SCH ×2 (12:09→21:44)
[2016-12-27] MEDS ORDERED: XYLOCAINE 2 % (PLAIN) ONE (14:55)
[2016-12-27] MEDS ORDERED: ZOFRAN INJ 4 MG VIAL ONE (14:55)
[2016-12-27] MEDS ORDERED: VERSED ONE (14:55)
[2016-12-27] MEDS ORDERED: NORCURON INJ 10 MG VIAL ONE (14:55)
[2016-12-27] MEDS ORDERED: QUELICIN (OR ANECTINE) ONE (14:55)
[2016-12-27] MEDS ORDERED: NEOSTIGMINE INJ ONE (14:55)
[2016-12-27] MEDS ORDERED: DIPRIVAN VIAL ONE (14:55)
[2016-12-27] MEDS ORDERED: SUPRANE IN ONE (14:55)
[2016-12-27] MEDS: NORCO 5/325 MG TAB PO PRN (15:15)
[2016-12-28] MEDS: DILAUDID INJ IVP PRN ×3 (02:01→10:14)
[2016-12-28] MEDS: ZOSYN VIAL 3.375 GM 3.375 GM in NS 100 ML IV + SPIKE MINIBAG* 100 ML IV SCH ×2 (06:07→14:16)
[2016-12-28 06:28] LABS: BASOPHILS # (AUTO) 0.1 X10^3/uL (0.0-0.1); MONOCYTES # (AUTO) 0.7 x10^3/uL (0.3-0.8)
[2016-12-28 06:51] LABS: eGFR BLACK RACES > 60 (>60)
[2016-12-28 07:01] LABS: BASOPHILS % (AUTO) 0.5 % (0.2-1.0); EOSINOPHILS # (AUTO) 0.2 x10^3/uL (0.0-0.2); EOSINOPHILS % (AUTO) 1.5 % (0.9-2.9); HEMATOCRIT 31.1 % (42.0-54.0); HEMOGLOBIN 9.4 g/dL (13.5-18.0); LYMPHOCYTES # (AUTO) 0.6 X10^3/uL (1.3-2.9); LYMPHOCYTES % (AUTO) 5.3 % (21.0-51.0); MEAN CORPUSCULAR HEMOGLOBIN 21.4 pg (27.0-34.0); MEAN CORPUSCULAR HGB CONC 30.3 g/dL (33.0-35.0); MEAN CORPUSCULAR VOLUME 70.7 fL (80.0-100.0); MEAN PLATELET VOLUME 8.6 fL (7.4-11.0); MONOCYTES % (AUTO) 6.3 % (0.0-13.0); NEUTROPHILS # (AUTO) 10.1 x10^3/uL (2.2-4.8); NEUTROPHILS % (AUTO) 86.4 % (42.0-75.0); PLATELET COUNT 152 X10^3/uL (150.0-450.0); WHITE BLOOD COUNT 11.7 X10^3/uL (3.6-10.0)
[2016-12-28 07:19] LABS: ANISOCYTOSIS 2+; HYPOCHROMASIA 2+; MICROCYTOSIS 1+; PLATELET MORPHOLOGY COMMENT NORMAL (NORMAL)
[2016-12-28 08:16] LABS: ALANINE AMINOTRANSFERASE 42 Units/L (12-78); ALBUMIN 2.7 g/dL (3.4-5.0); ALKALINE PHOSPHATASE 76 Units/L (46-116); ASPARTATE AMINO TRANSFERASE 38 Units/L (15-37); BLOOD UREA NITROGEN 6 mg/dL (7-18); CALCIUM 8.3 mg/dL (8.5-10.1); CARBON DIOXIDE 24.8 mmol/L (21-32); CHLORIDE 106 mmol/L (98-107); COR CA(FOR HYPOALB) 9.3 mg/dL (8.5-10.1); CREATININE 0.67 mg/dL (0.70-1.30); GLUCOSE 93 mg/dL (65-99); SODIUM 141 mmol/L (136-145); TOTAL PROTEIN 5.8 g/dL (6.4-8.2); eGFR NON BLACK RACES > 60 (>60)
[2016-12-28] MEDS: PROTONIX INJ 40 MG VIAL IVP SCH (09:10)
[2016-12-28] MEDS: K-DUR TAB 20 MEQ PO PRN ×2 (09:10→14:20)
[2016-12-28 14:27] VITALS: BP 140/88
== END 2016-12-28 15:10 | disposition home or self-care (01) | DRG 988 ==
LOC: ER 18:51 → ICU 21:08
PROVIDERS: ADMIT Internal Medicine; ATTEND Internal Medicine
PROC: 30233N1 Transfusion of Nonautologous Red Blood Cells into Peripheral Vein, Percutaneous Approach (ICD-10-PCS; 2016-12-23)
PROC: 30233N1 Transfusion of Nonautologous Red Blood Cells into Peripheral Vein, Percutaneous Approach (ICD-10-PCS; 2016-12-23)
PROC: 30233N1 Transfusion of Nonautologous Red Blood Cells into Peripheral Vein, Percutaneous Approach (ICD-10-PCS; 2016-12-24)
PROC: 30233N1 Transfusion of Nonautologous Red Blood Cells into Peripheral Vein, Percutaneous Approach (ICD-10-PCS; 2016-12-24)
PROC: 30233N1 Transfusion of Nonautologous Red Blood Cells into Peripheral Vein, Percutaneous Approach (ICD-10-PCS; 2016-12-24)
PROC: 30233N1 Transfusion of Nonautologous Red Blood Cells into Peripheral Vein, Percutaneous Approach (ICD-10-PCS; 2016-12-25)
PROC: 0FT44ZZ Resection of Gallbladder, Percutaneous Endoscopic Approach (ICD-10-PCS; principal; 2016-12-27 08:30)
DX: D62 Acute posthemorrhagic anemia (principal); E87.2 Acidosis; K81.1 Chronic cholecystitis; K82.8 Other specified diseases of gallbladder; F10.21 Alcohol dependence, in remission; F32.89 Other specified depressive episodes; E87.6 Hypokalemia
CPT/HCPCS: 36415; 36430; 51702; 71010; 74178; 76705; 78227; 80053; 80307; 80320; 81001; 82140; 82270; 82607; 82728; 82746; 83540; 83550; 83605; 83735; 84132; 84439; 84443; 85014; 85018; 85025; 86850; 86900; 86901; 86922; 93005; 93010; 96365; 96367; 96374; 99231; 99238; 99284; 99285; A4216; A4222; C9113; P9016; S0020; G0434; G6038; G6039; G6040; J0330; J1170; J1200; J2001; J2250; J2405; J2543; J2550; J2560; J2710; J3010; J3411; J3475; J3480; J3490

== ENCOUNTER 2017-04-03 15:04 | Emergency (ER) | payer BC ==
[2017-04-03 15:12] VITALS: BMI 27.2
[2017-04-03 15:32] LABS: BASOPHILS # (AUTO) 0.2 X10^3/uL (0.0-0.1); BASOPHILS % (AUTO) 1.4 % (0.2-1.0); HEMATOCRIT 26.5 % (42.0-54.0); LYMPHOCYTES # (AUTO) 3.1 X10^3/uL (1.3-2.9); LYMPHOCYTES % (AUTO) 26.5 % (21.0-51.0); MEAN CORPUSCULAR HEMOGLOBIN 17.4 pg (27.0-34.0); MEAN CORPUSCULAR HGB CONC 29.2 g/dL (33.0-35.0); MEAN CORPUSCULAR VOLUME 59.4 fL (80.0-100.0); MEAN PLATELET VOLUME 8.6 fL (7.4-11.0); MONOCYTES # (AUTO) 0.4 x10^3/uL (0.3-0.8); MONOCYTES % (AUTO) 3.3 % (0.0-13.0); NEUTROPHILS # (AUTO) 8.1 x10^3/uL (2.2-4.8); NEUTROPHILS % (AUTO) 68.8 % (42.0-75.0); PLATELET COUNT 305 X10^3/uL (150.0-450.0); RED BLOOD COUNT 4.47 X10^6/uL (4.7-6.0); RED CELL DISTRIBUTION WIDTH 20.6 % (11.6-16.5); WHITE BLOOD COUNT 11.8 X10^3/uL (3.6-10.0)
[2017-04-03 15:42] LABS: BLOOD UREA NITROGEN 9 mg/dL (7-18); CALCIUM 8.7 mg/dL (8.5-10.1); CARBON DIOXIDE 20.3 mmol/L (21-32); CHLORIDE 105 mmol/L (98-107); COR NA(FOR HYPERGLY) 142 mmol/L (136-145); CREATININE 2.12 mg/dL (0.70-1.30); SODIUM 141 mmol/L (136-145); eGFR BLACK RACES 43 (>60); eGFR NON BLACK RACES 36 (>60)
[2017-04-03 15:46] LABS: ALANINE AMINOTRANSFERASE 12 Units/L (12-78); ALBUMIN 3.8 g/dL (3.4-5.0); ALKALINE PHOSPHATASE 79 Units/L (46-116); ASPARTATE AMINO TRANSFERASE 11 Units/L (15-37); BLOOD ALCOHOL < 3 mg/dL (0-19.9); TOTAL PROTEIN 6.8 g/dL (6.4-8.2)
[2017-04-03 15:53] LABS: HEMOGLOBIN 7.8 g/dL (13.5-18.0)
[2017-04-03 15:59] LABS: ANISOCYTOSIS 1+; BAND NEUTROPHILS % 3 % (0-10); HYPOCHROMASIA 2+; PLATELET MORPHOLOGY COMMENT NORMAL (NORMAL)
[2017-04-03 16:00] LABS: MICROCYTOSIS 2+
[2017-04-03 16:13] LABS: SALICYLATE 3.3 mg/dL (2.8-20)
[2017-04-03 16:14] LABS: ACETAMINOPHEN < 10.0 ug/mL (10-30)
[2017-04-03] MEDS ORDERED: MVI INJ (ADULT) IV ONE (16:16)
[2017-04-03] MEDS ORDERED: ATIVAN INJ 2 MG VIAL ONE (16:19)
[2017-04-03] MEDS ORDERED: ATIVAN INJ 2 MG VIAL IVP ONE (16:19)
--- NOTE | 2017-04-03 16:20 | DR.AINTOX ---
HPI - Time Seen Time seen: 16:15 - PCP Primary Care Physician: [email or web address] - Complaint Doctors Chief Complaint Comments: Patient states that he has been an alcoholic for twenty years. He drinks almost anything. Patient states that he want to harm himself so that he will not harm his mom. He states that he wants to harm himself. Chief Complaint:: pt stated he drank rubbing alcohol last night and at 1 pm today he took a unknown amount of motrin 200mg due to loosing his job again. - Source History Provided: Patient - Mode of Arrival Mode of Arrival: EMS - Timing Onset of Chief Complaint: 04/03/17 PMH - PMH Past Medical History: Yes Past Medical History: Depression, GERD Past Surgical History: Yes Surgical History: Appendectomy, Ortho Surgery - Family History History of Family Medical Conditions: Yes Family Medical History: [place], Coronary Artery Disease - Social History Does patient currently use any type of tobacco product: Yes Have you used tobacco products in the last 12 months: Yes Type of Tobacco Use: Cigarettes How many years tobacco product used: 5 Does any household member use tobacco: No Alcohol Use: Occasionally Do you use any recreational Drugs:: Yes (thc) Lives With: Family Lives Where: Home - infectious screening In the last 2 months have you had wt loss of >10#?: NO Have you had fever, night sweats or hemotysis?: No Have you traveled outside the country in the last 6 months?: No Isolation: Standard ROS - Review of Systems Eyes: No Symptoms Reported ENTM: No Symptoms Reported Respiratoy: No Symptoms Reported Cardiovascular: No Symptoms Reported Gastrointestinal/Abdominal: No Symptoms Reported Genitourinary: No Symptoms Reported Neurological: No Symptoms Reported Musculoskeletal: No Symptoms Reported Integumentary: No Symptoms Reported Hematologic/Lymphatic: No Symptoms Reported Endocrine: No Symptoms Reported Psychiatric: No Symptoms Reported All Other Systems: Reviewed and Negative PE - Vitals Vital Signs: Temp Pulse Resp BP BP BP BP 04/03/17 15:07 98.6 F 101 H 16 139/69 12/28/16 14:00 140/88 140/88 12/25/16 02:00 162/86 12/24/16 18:00 159/78 Pulse Ox 04/03/17 15:07 98 12/28/16 14:00 12/25/16 02:00 12/24/16 18:00 - General Limitations: No Limitations General Appearance: Alert, Anxious - Head Head Exam: Normal Inspection, Atraumatic - Eyes Eye exam: Normal Appearance, PERRL, EOMI Pupils: Regular, Round: Bilateral Sclera/Conjunctival: Normal Inspection: Bilateral - ENT ENT Exam: Normal Exam, Normal Oropharynx - Neck Neck Exam: Normal Inspection, Full ROM - Chest Chest Inspection: Normal Inspection, Symmetric Chest Wall Rise - Respiratory Respiratory Exam: Normal Lung Sounds Bilat Respiratory Exam: Bilateral Clear to Auscultation - Cardiovascular Cardiovascular Exam: Regular Rate, Normal Rhythm - Abdominal Exam Abdominal Exam: Normal Inspection, Normal Bowel Sounds Abdominal Tenderness: Diffuse - Extremities Extremities Exam: Normal Inspection, Full ROM - Back Back Exam: Normal Inspection - Neurologic Neurological Exam: Alert, Oriented X3, CN II-XII Intact Speech: Fluid Speech Cranial Nerve Exam: EOM Function (II, III, IV, ): Normal Cerebellar Function: Finger to Nose: Normal Motor Strength - LUE: 3/5 Motor Strength - RUE: 2/5 Motor Strength - LLE: 2/5 Motor Strength - RLE: 2/5 Sensory Exam Lower Extremity: Light Touch: Normal DTR: achilles tendon (L): 3+ - Psychiatric Psychiatric Exam: Agitated Expanded Psychiatric Exam: Restlessness - Skin Skin Exam: Warm, Dry, Intact Course - Reevaluation 1st: Improved, Unchanged ROR - Labs Reviewed Result Diagrams: 04/03/17 15:22 04/03/17 15:22 Laboratory: WBC 11.8 X10^3/uL (3.6-10.0) H 04/03/17 15:22 RBC 4.47 X10^6/uL (4.7-6.0) L 04/03/17 15:22 Hgb 7.8 g/dL (13.5-18.0) L 04/03/17 15:22 Hct 26.5 % (42.0-54.0) L 04/03/17 15:22 MCV 59.4 fL (80.0-100.0) L 04/03/17 15:22 MCH 17.4 pg (27.0-34.0) L 04/03/17 15:22 MCHC 29.2 g/dL (33.0-35.0) L 04/03/17 15:22 RDW 20.6 % (11.6-16.5) H 04/03/17 15:22 Plt Count 305 X10^3/uL (150.0-450.0) 04/03/17 15:22 Plt Count Comment Adequate (ADEQUATE) 04/03/17 15:22 MPV 8.6 fL (7.4-11.0) 04/03/17 15:22 Neut % 68.8 % (42.0-75.0) 04/03/17 15:22 Lymph % 26.5 % (21.0-51.0) 04/03/17 15:22 [place] % 3.3 % (0.0-13.0) 04/03/17 15:22 Eos % 0.0 % (0.9-2.9) L 04/03/17 15:22 Baso % 1.4 % (0.2-1.0) H 04/03/17 15:22 Neut # 8.1 x10^3/uL (2.2-4.8) H 04/03/17 15:22 Lymph # 3.1 X10^3/uL (1.3-2.9) H 04/03/17 15:22 [place] # 0.4 x10^3/uL (0.3-0.8) 04/03/17 15:22 Eos # 0.0 x10^3/uL (0.0-0.2) 04/03/17 15:22 Baso # 0.2 X10^3/uL (0.0-0.1) H 04/03/17 15:22 Absolute Nucleated RBC 0.2 /100WBC 04/03/17 15:22 Total Counted 100 04/03/17 15:22 Neutrophils % (Manual) 69 % (39-76) 04/03/17 15:22 Band Neutrophils % 3 % (0-10) 04/03/17 15:22 Lymphocytes % (Manual) 22 % (13-43) 04/03/17 15:22 Monocytes % (Manual) 6 % (4-9) 04/03/17 15:22 Plt Morphology Comment Normal (NORMAL) 04/03/17 15:22 RBC Morphology Abnormal (NORMAL) 04/03/17 15:22 Hypochromasia 2+ A 04/03/17 15:22 Anisocytosis 1+ A 04/03/17 15:22 Microcytosis 2+ A 04/03/17 15:22 Sodium 141 mmol/L (136-145) 04/03/17 15:22 Corrected Sodium 142 mmol/L (136-145) 04/03/17 15:22 Potassium 3.0 mmol/L (3.5-5.1) L* 04/03/17 15:22 Chloride 105 mmol/L (98-107) 04/03/17 15:22 Carbon Dioxide 20.3 mmol/L (21-32) L 04/03/17 15:22 BUN 9 mg/dL (7-18) 04/03/17 15:22 Creatinine 2.12 mg/dL (0.70-1.30) H 04/03/17 15:22 Est GFR (MDRD) Af Amer 43 (>60) L 04/03/17 15:22 Est GFR (MDRD) Non-Af 36 (>60) L 04/03/17 15:22 Glucose 124 mg/dL (65-99) H 04/03/17 15:22 Calcium 8.7 mg/dL (8.5-10.1) 04/03/17 15:22 Corrected Calcium TNP 04/03/17 15:22 Total Bilirubin 0.40 mg/dL (0.2-1.0) 04/03/17 15:22 AST 11 Units/L (15-37) L 04/03/17 15:22 ALT 12 Units/L (12-78) 04/03/17 15:22 Alkaline Phosphatase 79 Units/L (46-116) 04/03/17 15:22 Total Protein 6.8 g/dL (6.4-8.2) 04/03/17 15:22 Albumin 3.8 g/dL (3.4-5.0) 04/03/17 15:22 Globulin 3.0 g/dL (2.5-4.5) 04/03/17 15:22 Albumin/Globulin Ratio 1.3 Ratio (1.1-2.1) 04/03/17 15:22 Salicylates 3.6 mg/dL (2.8-20) 04/03/17 15:22 Acetaminophen < 10.0 ug/mL (10-30) L 04/03/17 15:22 Ethyl Alcohol mg/dL < 3 mg/dL (0-19.9) 04/03/17 15:22 - Diagnosis Discharge Problem: Hypokalemia, Alcoholic, Suicidal risk - Discharge Plan Condition: Stable - Follow ups/Referrals Follow ups/Referrals: MONICA MIMS [Primary Care Provider] - 3 days - Instructions
[2017-04-03] MEDS ORDERED: ZOFRAN INJ 4 MG VIAL IVP ONE (16:21)
[2017-04-03] MEDS ORDERED: MAGNESIUM SULFATE 50% INJ ONE (16:23)
[2017-04-03] MEDS ORDERED: ZOFRAN INJ 4 MG VIAL ONE (16:23)
[2017-04-03] MEDS ORDERED: PHENOBARBITAL SODIUM INJ 65 MG VIAL ONE (16:23)
[2017-04-03] MEDS ORDERED: THIAMINE HCL INJ ONE (16:23)
[2017-04-03] MEDS ORDERED: NS 1000 ML 1,000 ML ONE (16:24)
[2017-04-03] MEDS ORDERED: K-LYTE EFFERVESCENT ONE (16:29)
[2017-04-03] MEDS ORDERED: NS 1000 ML 1,000 ML with THIAMINE HCL INJ 100 MG, MAGNESIUM SULFATE 50% INJ 1 GM, MVI I... IV SCH ×5 (17:00)
[2017-04-03] MEDS ORDERED: PROTONIX INJ 40 MG VIAL IVP ONE (17:56)
[2017-04-03] MEDS ORDERED: PROTONIX INJ 40 MG VIAL ONE ×2 (18:00→19:33)
[2017-04-03] MEDS ORDERED: K-LYTE EFFERVESCENT PO SCH (22:00)
[2017-04-03] MEDS ORDERED: PHENERGAN INJ 25 MG IV ONE (22:30)
[2017-04-03] MEDS ORDERED: PHENERGAN INJ 25 MG ONE (22:32)
[2017-04-04 00:21] LABS: BILIRUBIN,URINE NEGATIVE (NEGATIVE); BLOOD/HEMOGLOBIN,URINE NEGATIVE (NEGATIVE); GLUCOSE, URINE NEGATIVE (NEGATIVE); KETONES,URINE 3+ (NEGATIVE); LEUKOCYTE ESTERASE ,URINE 1+ (NEGATIVE); NITRITES,URINE NEGATIVE (NEGATIVE); PH,URINE 6.5 (5.0 - 8.0); PROTEIN,URINE 2+ (NEGATIVE); UROBILINOGEN,URINE 1+ (NORMAL)
[2017-04-04] MEDS ORDERED: LIBRIUM PO ONE ×3 (00:25→22:41)
[2017-04-04 00:37] LABS: AMORPHOUS SEDIMENT,UR 2+ /HPF (NEGATIVE); APPEARANCE,URINE CLOUDY (CLEAR); BACTERIA,URINE 2+ /HPF (NEGATIVE); COLOR,URINE YELLOW (YELLOW); MUCUS,URINE MODERATE /HPF (NEGATIVE); SQUAMOUS EPITHELIAL CELL,UR RARE /HPF (NEGATIVE)
[2017-04-04] MEDS ORDERED: K-LYTE EFFERVESCENT ONE (01:01)
[2017-04-04] MEDS ORDERED: LEVAQUIN TAB 500 MG PO STA (01:09)
[2017-04-04] MEDS ORDERED: LEVAQUIN TAB 500 MG ONE (04:37)
[2017-04-04] MEDS ORDERED: PHENERGAN INJ 25 MG IM ONE ×2 (05:10→05:15)
[2017-04-04] MEDS ORDERED: PHENERGAN INJ 25 MG ONE (05:12)
[2017-04-04] MEDS ORDERED: MAGNESIUM SULFATE 50% INJ ONE (06:29)
[2017-04-04] MEDS ORDERED: NS 1000 ML 1,000 ML ONE (06:29)
[2017-04-04] MEDS ORDERED: MVI INJ (ADULT) IV ONE (06:30)
[2017-04-04] MEDS ORDERED: PHENOBARBITAL SODIUM INJ 65 MG VIAL ONE (06:30)
[2017-04-04] MEDS ORDERED: THIAMINE HCL INJ ONE (06:30)
[2017-04-04 12:32] LABS: BASOPHILS # (AUTO) 0.1 X10^3/uL (0.0-0.1); BASOPHILS % (AUTO) 0.9 % (0.2-1.0); MEAN PLATELET VOLUME 8.3 fL (7.4-11.0)
[2017-04-04 12:35] LABS: BLOOD UREA NITROGEN 6 mg/dL (7-18); CALCIUM 8.4 mg/dL (8.5-10.1); CARBON DIOXIDE 21.5 mmol/L (21-32); CHLORIDE 105 mmol/L (98-107); COR NA(FOR HYPERGLY) 137 mmol/L (136-145); SODIUM 137 mmol/L (136-145); eGFR BLACK RACES > 60 (>60); eGFR NON BLACK RACES > 60 (>60)
[2017-04-04 12:37] LABS: EOSINOPHILS % (AUTO) 0.5 % (0.9-2.9); HEMATOCRIT 22.8 % (42.0-54.0); LYMPHOCYTES # (AUTO) 2.2 X10^3/uL (1.3-2.9); LYMPHOCYTES % (AUTO) 23.9 % (21.0-51.0); MEAN CORPUSCULAR HEMOGLOBIN 17.6 pg (27.0-34.0); MEAN CORPUSCULAR HGB CONC 29.3 g/dL (33.0-35.0); MEAN CORPUSCULAR VOLUME 59.9 fL (80.0-100.0); MONOCYTES # (AUTO) 0.7 x10^3/uL (0.3-0.8); MONOCYTES % (AUTO) 7.6 % (0.0-13.0); NEUTROPHILS % (AUTO) 67.1 % (42.0-75.0); PLATELET COUNT 272 X10^3/uL (150.0-450.0); RED BLOOD COUNT 3.81 X10^6/uL (4.7-6.0); RED CELL DISTRIBUTION WIDTH 20.3 % (11.6-16.5)
[2017-04-04 12:40] LABS: HEMOGLOBIN 6.7 g/dL (13.5-18.0)
[2017-04-04 12:42] LABS: SALICYLATE < 2.8 mg/dL (2.8-20)
[2017-04-04 12:45] LABS: ACETAMINOPHEN < 10.0 ug/mL (10-30)
[2017-04-04 13:12] LABS: HYPOCHROMASIA 2+; MICROCYTOSIS 2+; PLATELET MORPHOLOGY COMMENT NORMAL (NORMAL)
[2017-04-04] MEDS ORDERED: PHENERGAN TAB 25 MG PO ONE ×2 (14:35→14:40)
[2017-04-05 08:23] VITALS: BP 161/81
[2017-04-05] MEDS ORDERED: LIBRIUM PO ONE (08:31)
[2017-04-05] MEDS ORDERED: HEMOCYTE-PLUS PO SCH (09:00)
[2017-04-05] MEDS ORDERED: HEMOCYTE-PLUS PO ONE (09:19)
== END 2017-04-05 11:18 | disposition short-term general hospital (02) ==
LOC: ER 15:04
DX: F10.20 Alcohol dependence, uncomplicated (principal); R45.851 Suicidal ideations; E87.6 Hypokalemia
CPT/HCPCS: 36415; 80048; 80053; 80307; 80320; 81001; 82270; 84132; 85025; 87086; 93005; 93010; 96365; 96367; 96372; 96374; 96375; 99283; 99285; C9113; Q0169; G0434; G6038; G6039; G6040; J2060; J2405; J2550; J2560; J3411; J3475

== ENCOUNTER 2017-05-24 12:53 | Emergency (ER) | payer BC ==
[2017-05-24 13:05] VITALS: BMI 25.7
--- NOTE | 2017-05-24 13:09 | DR.GENAD ---
HPI - PCP Primary Care Physician: sonali - HPI Comment HPI Comment: HISTORY ABOVE. - Complaint/Symptoms Chief Complaint Doctors Comments: PATIENT IN ED VIA EMS DUE TO DTS. HE LAST DRANK YESTERDAY. HE ALSO BEING TAKING PAIN PILLS AND MIXING IT WITH HIS DAILY DRINKING. HE HAS DEPRESSION AND BYPOLAR DISORDER. WISHING TO PARTICIPATE IN [facility]. Chief Complaint:: patient stated he has been drinking 4 pints a day last was yesterday. he also has been taking lorcet 5 pills at a time, last was 2 days ago - Nurses notes reviewed Nurses Notes Review: Yes - Source History Provided: Patient - Mode of Arrival Mode of Arrival: EMS - Timing Onset of Chief Complaint: 05/22/17 Came on: Gradually - Duration Duration: Constant Duration: Days - Severity Severity: Moderate <NADIA STEVENSON - Last Filed: 05/25/17 11:54> PMH - PMH Past Medical History: Yes Past Medical History: Depression, GERD Past Surgical History: Yes Surgical History: Appendectomy, Ortho Surgery - Family History History of Family Medical Conditions: Yes Family Medical History: [place], Coronary Artery Disease - Social History Does patient currently use any type of tobacco product: Yes Have you used tobacco products in the last 12 months: Yes Type of Tobacco Use: Cigarettes Does any household member use tobacco: No Alcohol Use: Heavy Do you use any recreational Drugs:: Yes (pills) Lives With: Family Lives Where: Home - infectious screening In the last 2 months have you had wt loss of >10#?: NO Have you had fever, night sweats or hemotysis?: No Have you traveled outside the country in the last 6 months?: No Isolation: Standard <NADIA STEVENSON - Last Filed: 05/25/17 11:54> ROS - Review of Systems Constitutional: No Symptoms Reported. negative: Chills, Fever, Weakness Eyes: No Symptoms Reported ENTM: No Symptoms Reported Respiratoy: No Symptoms Reported, Non-Productive Cough. negative: Short of Breath, Wheezing, Hemoptysis Cardiovascular: No Symptoms Reported Gastrointestinal/Abdominal: Nausea Genitourinary: No Symptoms Reported Neurological: Anxiety Musculoskeletal: Muscle Pain Integumentary: No Symptoms Reported Hematologic/Lymphatic: Easy Bleeding Endocrine: No Symptoms Reported All Other Systems: Reviewed and Negative <NADIA STEVENSON - Last Filed: 05/25/17 11:54> PE - General Limitations: No Limitations General Appearance: Alert - Head Head Exam: Normal Inspection - Eyes Eye exam: Normal Appearance - ENT ENT Exam: Normal External Ear Exam External Ear Exam: Normal External Inspection TM/Canal Exam: Bilateral Normal Nose Exam: Normal Nose Exam Mouth Exam: Normal Inspection Throat Exam: Normal Inspection - Neck Neck Exam: Normal Inspection - Chest Chest Inspection: Symmetric Chest Wall Rise - Respiratory Respiratory Exam: Normal Lung Sounds Bilat Respiratory Exam: Bilateral Clear to Auscultation - Cardiovascular Cardiovascular Exam: Regular Rate, Normal Rhythm, Normal Heart Sounds - Abdominal Exam Abdominal Exam: Normal Bowel Sounds, Soft. negative: Tenderness - Extremities Extremities Exam: Normal Inspection - Back Back Exam: Normal Inspection - Neurologic Neurological Exam: Alert, Oriented X3 - Psychiatric Psychiatric Exam: Anxious - Skin Skin Exam: Normal Color <NADIA STEVENSON - Last Filed: 05/25/17 11:54> - Vital Signs Vitals: Temperature 98.1 F Pulse Rate [Apical] 94 Pulse Rate [Left Brachial] 101 Pulse Rate 105 Respiratory Rate 20 Blood Pressure [Left Calf] 159/78 Blood Pressure [Left Arm] 146/97 Blood Pressure [Right Arm] 162/86 Blood Pressure 142/85 O2 Sat by Pulse Oximetry 98 MDM - Differential Diagnosis Differential Diagnosis: ALCHOHOL DEPENDENCY, DEPRESSION. BIPOLAR DISORDER. <NADIA STEVENSON - Last Filed: 05/25/17 11:54> Course - Treatment Treatment: SEE ORDERS. - Education/Counseling Education/Counseling: Patient, Education Educated On: Treatment, Diagnosis <NADIA STEVENSON - Last Filed: 05/25/17 11:54> ROR - Labs Reviewed Result Diagrams: 05/24/17 13:20 05/24/17 13:20 <GI LONDON - Last Filed: 05/25/17 10:04> - Labs Reviewed Laboratory Results Reviewed?: Yes Result Diagrams: 05/24/17 13:20 05/24/17 13:20 - EKG Rhythm: NSR (EKG NOTED) <NADIA STEVENSON - Last Filed: 05/25/17 11:54> - Labs Reviewed Laboratory: WBC 9.2 X10^3/uL (3.6-10.0) 05/24/17 13:20 RBC 5.22 X10^6/uL (4.7-6.0) 05/24/17 13:20 Hgb 12.4 g/dL (13.5-18.0) L 05/24/17 13:20 Hct 38.5 % (42.0-54.0) L 05/24/17 13:20 MCV 73.7 fL (80.0-100.0) L 05/24/17 13:20 MCH 23.7 pg (27.0-34.0) L 05/24/17 13:20 MCHC 32.1 g/dL (33.0-35.0) L 05/24/17 13:20 RDW 31.6 % (11.6-16.5) H 05/24/17 13:20 Plt Count 298 X10^3/uL (150.0-450.0) 05/24/17 13:20 Plt Count Comment Adequate (ADEQUATE) 05/24/17 13:20 MPV 8.6 fL (7.4-11.0) 05/24/17 13:20 Neut % 73.1 % (42.0-75.0) 05/24/17 13:20 Lymph % 17.4 % (21.0-51.0) L 05/24/17 13:20 [place] % 6.2 % (0.0-13.0) 05/24/17 13:20 Eos % 2.1 % (0.9-2.9) 05/24/17 13:20 Baso % 1.2 % (0.2-1.0) H 05/24/17 13:20 Neut # 6.7 x10^3/uL (2.2-4.8) H 05/24/17 13:20 Lymph # 1.6 X10^3/uL (1.3-2.9) 05/24/17 13:20 [place] # 0.6 x10^3/uL (0.3-0.8) 05/24/17 13:20 Eos # 0.2 x10^3/uL (0.0-0.2) 05/24/17 13:20 Baso # 0.1 X10^3/uL (0.0-0.1) 05/24/17 13:20 Absolute Nucleated RBC 0.1 /100WBC 05/24/17 13:20 Total Counted 100 05/24/17 13:20 Neutrophils % (Manual) 68 % (39-76) 05/24/17 13:20 Lymphocytes % (Manual) 19 % (13-43) 05/24/17 13:20 Monocytes % (Manual) 7 % (4-9) 05/24/17 13:20 Eosinophils % (Manual) 3 % (0-6) 05/24/17 13:20 Blast Cells 3 (-1) H 05/24/17 13:20 Plt Clumps, EDTA Few 05/24/17 13:20 Giant Platelets Few 05/24/17 13:20 Plt Morphology Comment Abnormal (NORMAL) 05/24/17 13:20 RBC Morphology Abnormal (NORMAL) 05/24/17 13:20 Hypochromasia 1+ A 05/24/17 13:20 Anisocytosis 3+ A 05/24/17 13:20 Sodium 142 mmol/L (136-145) 05/24/17 13:20 Corrected Sodium 143 mmol/L (136-145) 05/24/17 13:20 Potassium 3.6 mmol/L (3.5-5.1) 05/24/17 13:20 Chloride 105 mmol/L (98-107) 05/24/17 13:20 Carbon Dioxide 22.8 mmol/L (21-32) 05/24/17 13:20 BUN 7 mg/dL (7-18) 05/24/17 13:20 Creatinine 0.75 mg/dL (0.70-1.30) 05/24/17 13:20 Est GFR (MDRD) Af Amer > 60 (>60) 05/24/17 13:20 Est GFR (MDRD) Non-Af > 60 (>60) 05/24/17 13:20 Glucose 135 mg/dL (65-99) H 05/24/17 13:20 Calcium 9.1 mg/dL (8.5-10.1) 05/24/17 13:20 Corrected Calcium TNP 05/24/17 13:20 Total Bilirubin 0.10 mg/dL (0.2-1.0) L 05/24/17 13:20 AST 15 Units/L (15-37) 05/24/17 13:20 ALT 21 Units/L (12-78) 05/24/17 13:20 Alkaline Phosphatase 91 Units/L (46-116) 05/24/17 13:20 Total Protein 7.3 g/dL (6.4-8.2) 05/24/17 13:20 Albumin 3.5 g/dL (3.4-5.0) 05/24/17 13:20 Globulin 3.8 g/dL (2.5-4.5) 05/24/17 13:20 Albumin/Globulin Ratio 0.9 Ratio (1.1-2.1) L 05/24/17 13:20 Specimen Type Clean catch urine 05/24/17 14:42 Urine Color Yellow (YELLOW) 05/24/17 14:42 Urine Appearance Slightly hazy (CLEAR) 05/24/17 14:42 Urine pH 6.0 (5.0 - 8.0) 05/24/17 14:42 Ur Specific [place] 1.015 (1.000-1.030) 05/24/17 14:42 Urine Protein 2+ (NEGATIVE) 05/24/17 14:42 Urine Glucose (UA) Negative (NEGATIVE) 05/24/17 14:42 Urine Ketones Negative (NEGATIVE) 05/24/17 14:42 Urine Occult Blood Negative (NEGATIVE) 05/24/17 14:42 Urine Nitrite Negative (NEGATIVE) 05/24/17 14:42 Urine Bilirubin Negative (NEGATIVE) 05/24/17 14:42 Urine Urobilinogen Normal (NORMAL) 05/24/17 14:42 Ur Leukocyte Esterase 1+ (NEGATIVE) 05/24/17 14:42 Urine RBC None seen /HPF (NEGATIVE) 05/24/17 14:42 Urine WBC Rare /HPF (NEGATIVE) 05/24/17 14:42 Ur Squamous Epith Cells Rare /HPF (NEGATIVE) 05/24/17 14:42 Amorphous Sediment Trace /HPF (NEGATIVE) 05/24/17 14:42 Urine Bacteria Negative /HPF (NEGATIVE) 05/24/17 14:42 Hyaline Casts Rare /LPF (NEGATIVE) 05/24/17 14:42 Urine Mucus Moderate /HPF (NEGATIVE) 05/24/17 14:42 Ur Culture Indicated? No/not indicated 05/24/17 14:42 Salicylates 3.8 mg/dL (2.8-20) 05/24/17 13:20 Urine Opiates Screen Negative (NEG=<300) 05/24/17 14:55 Urine Methadone Screen Negative (NEG=<300) 05/24/17 14:55 Acetaminophen < 10.0 ug/mL (10-30) L 05/24/17 13:20 Ur Barbiturates Screen Negative (NEG=<200) 05/24/17 14:55 Ur Phencyclidine Scrn Negative (NEG=<25) 05/24/17 14:55 Ur Amphetamines Screen Negative (NEG=<1000) 05/24/17 14:55 U Benzodiazepines Scrn Positive (NEG=<200) 05/24/17 14:55 Urine Cocaine Screen Negative (NEG=<300) 05/24/17 14:55 U Marijuana (THC) Screen Negative (NEG=<50) 05/24/17 14:55 Ethyl Alcohol mg/dL 13 mg/dL (0-19.9) 05/24/17 17:31 <GI LONDON - Last Filed: 05/25/17 10:04> <NADIA STEVENSON - Last Filed: 05/25/17 11:54> - Diagnosis Discharge Problem: Bipolar 1 disorder, Alcoholic Alcohol dependence Qualifiers: Substance use status: in withdrawal Complication of substance-induced condition : with delirium Qualified Code(s): F10.231 - Alcohol dependence with withdrawal delirium Depression Qualifiers: Depression Type: major depressive disorder Major depression recurrence: recurrent Active/Remission status: currently active Major depression episode severity: severe Psychotic features: without psychotic features Qualified Code(s ): F33.2 - Major depressive disorder, recurrent severe without psychotic features Discharge Problem: (Ruled Out): Suicidal risk, Suicidal ideation - Discharge Plan Disposition: HOME, SELF-CARE Condition: Stable - Follow ups/Referrals Follow ups/Referrals: MONICA MIMS [Primary Care Provider] - 3 days - Instructions Instructions: Alcohol Intoxication, [id number], Opioid Overdose Additional Notes - Additional Notes Additional Notes: While awaiting voluntary placement, pt decides to leave and try to find a place on his own. He asks for Ativan Rx but I told him I was unable to give him one. Pt wants d/c home with no meds, will return if symptoms recur. Pt not suicidal or homicidal. <GI LONDON - Last Filed: 05/25/17 10:04>
[2017-05-24] MEDS ORDERED: PHENOBARBITAL SODIUM INJ 65 MG VIAL ONE (13:24)
[2017-05-24] MEDS ORDERED: THIAMINE HCL INJ ONE (13:24)
[2017-05-24] MEDS ORDERED: MAGNESIUM SULFATE 50% INJ ONE (13:24)
[2017-05-24] MEDS ORDERED: MVI INJ (ADULT) IV ONE (13:25)
[2017-05-24] MEDS ORDERED: NS 1000 ML 1,000 ML ONE ×2 (13:27→18:30)
[2017-05-24 13:28] LABS: BASOPHILS # (AUTO) 0.1 X10^3/uL (0.0-0.1); BASOPHILS % (AUTO) 1.2 % (0.2-1.0); EOSINOPHILS # (AUTO) 0.2 x10^3/uL (0.0-0.2); EOSINOPHILS % (AUTO) 2.1 % (0.9-2.9); HEMATOCRIT 38.5 % (42.0-54.0); HEMOGLOBIN 12.4 g/dL (13.5-18.0); LYMPHOCYTES # (AUTO) 1.6 X10^3/uL (1.3-2.9); LYMPHOCYTES % (AUTO) 17.4 % (21.0-51.0); MEAN CORPUSCULAR HEMOGLOBIN 23.7 pg (27.0-34.0); MEAN CORPUSCULAR HGB CONC 32.1 g/dL (33.0-35.0); MEAN CORPUSCULAR VOLUME 73.7 fL (80.0-100.0); MEAN PLATELET VOLUME 8.6 fL (7.4-11.0); MONOCYTES # (AUTO) 0.6 x10^3/uL (0.3-0.8); MONOCYTES % (AUTO) 6.2 % (0.0-13.0); NEUTROPHILS # (AUTO) 6.7 x10^3/uL (2.2-4.8); NEUTROPHILS % (AUTO) 73.1 % (42.0-75.0); PLATELET COUNT 298 X10^3/uL (150.0-450.0); RED BLOOD COUNT 5.22 X10^6/uL (4.7-6.0); RED CELL DISTRIBUTION WIDTH 31.6 % (11.6-16.5); WHITE BLOOD COUNT 9.2 X10^3/uL (3.6-10.0)
[2017-05-24 13:39] LABS: ALANINE AMINOTRANSFERASE 21 Units/L (12-78); ALBUMIN 3.5 g/dL (3.4-5.0); ALKALINE PHOSPHATASE 91 Units/L (46-116); ASPARTATE AMINO TRANSFERASE 15 Units/L (15-37); BLOOD ALCOHOL 127 mg/dL (0-19.9); BLOOD UREA NITROGEN 7 mg/dL (7-18); CALCIUM 9.1 mg/dL (8.5-10.1); CARBON DIOXIDE 22.8 mmol/L (21-32); CHLORIDE 105 mmol/L (98-107); COR NA(FOR HYPERGLY) 143 mmol/L (136-145); CREATININE 0.75 mg/dL (0.70-1.30); SODIUM 142 mmol/L (136-145); TOTAL PROTEIN 7.3 g/dL (6.4-8.2); eGFR BLACK RACES > 60 (>60); eGFR NON BLACK RACES > 60 (>60)
[2017-05-24 13:43] LABS: SALICYLATE 3.8 mg/dL (2.8-20)
[2017-05-24 13:44] LABS: ACETAMINOPHEN < 10.0 ug/mL (10-30)
[2017-05-24 13:45] LABS: GIANT PLATELET FEW; PLATELET MORPHOLOGY COMMENT ABNORMAL (NORMAL)
[2017-05-24 13:46] LABS: ANISOCYTOSIS 3+; HYPOCHROMASIA 1+
[2017-05-24] MEDS ORDERED: ZOFRAN INJ 4 MG VIAL IVP ONE (13:54)
[2017-05-24] MEDS ORDERED: ZOFRAN INJ 4 MG VIAL ONE (13:58)
[2017-05-24] MEDS ORDERED: NS 1000 ML 1,000 ML with THIAMINE HCL INJ 100 MG, MAGNESIUM SULFATE 50% INJ 1 GM, MVI I... IV SCH ×5 (14:00)
[2017-05-24] MEDS ORDERED: ATIVAN INJ 2 MG VIAL IVP ONE ×3 (14:53→23:26)
[2017-05-24] MEDS ORDERED: ATIVAN INJ 2 MG VIAL ONE ×2 (14:54→18:27)
[2017-05-24 15:06] LABS: BILIRUBIN,URINE NEGATIVE (NEGATIVE); BLOOD/HEMOGLOBIN,URINE NEGATIVE (NEGATIVE); GLUCOSE, URINE NEGATIVE (NEGATIVE); KETONES,URINE NEGATIVE (NEGATIVE); LEUKOCYTE ESTERASE ,URINE 1+ (NEGATIVE); NITRITES,URINE NEGATIVE (NEGATIVE); PROTEIN,URINE 2+ (NEGATIVE); UROBILINOGEN,URINE NORMAL (NORMAL)
[2017-05-24 15:19] LABS: APPEARANCE,URINE SLIGHTLY HAZY (CLEAR); COLOR,URINE YELLOW (YELLOW); RBC,URINE NONE SEEN /HPF (NEGATIVE)
[2017-05-24 15:20] LABS: AMORPHOUS SEDIMENT,UR TRACE /HPF (NEGATIVE); BACTERIA,URINE NEGATIVE /HPF (NEGATIVE); HYALINE CASTS, URINE RARE /LPF (NEGATIVE); MUCUS,URINE MODERATE /HPF (NEGATIVE); SQUAMOUS EPITHELIAL CELL,UR RARE /HPF (NEGATIVE)
[2017-05-24] MEDS ORDERED: NICOTINE PATCH TD ONE (15:23)
[2017-05-24] MEDS ORDERED: NICOTINE PATCH TD SCH (16:00)
[2017-05-24] MEDS ORDERED: NS 1000 ML 1,000 ML IV SCH (19:00)
[2017-05-24] MEDS ORDERED: PHENERGAN INJ 25 MG IVP ONE (19:57)
[2017-05-24] MEDS ORDERED: PEPCID 20 MG IV PREMIX* 20 MG/50 ML BAG IV ONE ×2 (19:57→20:13)
[2017-05-24] MEDS ORDERED: PHENERGAN INJ 25 MG ONE (20:13)
[2017-05-25] MEDS ORDERED: ATIVAN INJ 2 MG VIAL ONE ×2 (00:26→05:37)
[2017-05-25] MEDS ORDERED: ATIVAN INJ 2 MG VIAL IVP ONE (05:33)
[2017-05-25 08:43] VITALS: BP 146/97
[2017-05-25] MEDS ORDERED: TORADOL 30 MG VIAL IVP ONE (08:45)
[2017-05-25] MEDS ORDERED: TORADOL 30 MG VIAL ONE (08:47)
[2017-05-25] MEDS ORDERED: NS 1000 ML 1,000 ML ONE (09:24)
== END 2017-05-25 10:19 | disposition home or self-care (01) ==
LOC: ER 12:55
DX: F31.9 Bipolar disorder, unspecified (principal); F10.231 Alcohol dependence with withdrawal delirium; F33.2 Major depressive disorder, recurrent severe without psychotic features
CPT/HCPCS: 36415; 80053; 80307; 80320; 81001; 85025; 93005; 93010; 96365; 96367; 96374; 96375; 99282; 99285; A4222; S0028; G0434; G6038; G6039; G6040; J1885; J2060; J2405; J2550; J2560; J3411; J3475